=== PATIENT | male | born 1985 | race Caucasian/White ===

== ENCOUNTER 2017-03-24 10:03 | Emergency (ER) | payer MEDICAID ==
[2017-03-24 10:16] VITALS: BP 133/84
--- NOTE | 2017-03-24 10:24 | ED Physician Documentation ---
PD HPI HEENT - Stated complaint Stated Complaint: TOOTH PX - Chief complaint Chief Complaint: Heent - History obtained from History obtained from: Patient - History of Present Illness Timing - onset: How many weeks ago (2) Timing - duration: Weeks (2) Timing - details: Gradual onset, Still present Location: Tooth Improves: Medication Worsens: Everything Associated symptoms: Swollen nodes, Facial swelling, Headache. No: Fever Similar symptoms before: Diagnosis (bad tooth) Recently seen: Not recently seen - Additional information Additional information: 31-year-old male has developed a hole in 1 of his molars on the right lower jaw about 6 months ago. He has developed some extreme sensitivity over the past 2 weeks and this is been even worse over the last several days she has not been able to eat at all on that side and has lost weight. He did get food stuck in this hole and this seemed to protect him a little bit from heat and cold sensitivity. He is working on getting an appointment to see a dentist to have the tooth pulled. Review of Systems Constitutional: denies: Fever Eyes: denies: Decreased vision Ears: denies: Ear pain Nose: reports: Congestion Throat: reports: Dental pain / toothache Respiratory: denies: Cough GI: denies: Vomiting PD PAST MEDICAL HISTORY - Past Medical History Past Medical History: No Respiratory: Asthma - Past Surgical History Past Surgical History: No - Present Medications Home Medications: Ambulatory Orders Medication Instructions Recorded Confirmed Amoxicillin 875 mg PO BID #20 tablet 03/24/17 - Allergies Allergies/Adverse Reactions: Allergies Allergy/AdvReac Type Severity Reaction Status Date / Time No Known Drug Allergies Allergy Verified 04/03/16 11:57 - Social History Does the pt smoke?: Yes Smoking Status: Current every day smoker Does the pt drink ETOH?: No - Immunizations Immunizations are current?: Yes PD ED PE NORMAL - Vitals Vital signs reviewed: Yes - General General: No acute distress, Well developed/nourished - HEENT HEENT: Atraumatic, PERRL, EOMI, Ears normal, Other (There is a hole in number 31 And this is filled with food debris. This is rinsed out of the Cavity with saline and It is applied over the top of it.) - Neck Neck: Supple, no meningeal sign, No bony TTP - Respiratory Respiratory: No respiratory distress - Derm Derm: Normal color, Warm and dry, No rash - Extremities Extremities: No deformity, No edema - Neuro Neuro: No motor deficit, No sensory deficit - Psych Psych: Normal mood, Normal affect PD ED PE EXPANDED - HEENT HEENT Visual: 1 - abscess, swelling, tenderness Results - Vitals Vitals: Vital Signs - 24 hr 03/24/17 10:13 Temperature 36.8 C Heart Rate 84 Respiratory 16 Rate Blood Pressure 133/84 H O2 Saturation 100 Oxygen O2 Source Room air PD MEDICAL DECISION MAKING - ED course Complexity details: considered differential, d/w patient ED course: 31-year-old male with a hole in his tooth and a lot of pain appears to have some swelling around the tooth as well the whole is cleared of debris with irrigation with saline and It is placed over the open hole with some improvement of patient's pain. Departure - Departure Disposition: 01 Home, Self Care Clinical Impression: Dental abscess Condition: Stable Instructions: ED Abscess Dental Follow-Up: [facility] [Provider Group] Prescriptions: Amoxicillin 875 mg PO BID #20 tablet
== END 2017-03-24 10:30 | disposition home or self-care (01) ==
LOC: ED 10:03
DX: K04.7 Periapical abscess without sinus (principal); K08.89 Other specified disorders of teeth and supporting structures
CPT/HCPCS: 99283

== ENCOUNTER 2017-07-16 14:12 | Emergency (ER) | payer MEDICAID ==
[2017-07-16 14:24] VITALS: BP 131/83
--- NOTE | 2017-07-16 14:31 | ED Physician Documentation ---
PD HPI ABD PAIN - Stated complaint Stated Complaint: LEFT SIDE ABD PX - Chief complaint Chief Complaint: Abd Pain - History obtained from History obtained from: Patient - History of Present Illness Timing - onset: Other (He was lifting an appliance yesterday and felt pain in the left lower quadrant radiating towards the groin. It is worse if he coughs or bends. There is no associated trouble with his bowel movements or nausea. No history of abdominal surgeries.) Review of Systems Constitutional: denies: Fever, Chills Cardiac: denies: Chest pain / pressure, Palpitations Respiratory: denies: Dyspnea, Cough GI: denies: Nausea, Vomiting, Constipation, Diarrhea PD PAST MEDICAL HISTORY - Past Medical History Past Medical History: Yes Respiratory: Asthma - Past Surgical History Past Surgical History: No - Present Medications Home Medications: Ambulatory Orders Medication Instructions Recorded Confirmed Amoxicillin 875 mg PO BID #20 tablet 03/24/17 - Allergies Allergies/Adverse Reactions: Allergies Allergy/AdvReac Type Severity Reaction Status Date / Time No Known Drug Allergies Allergy Verified 04/03/16 11:57 - Social History Does the pt smoke?: Yes Smoking Status: Current every day smoker Does the pt drink ETOH?: No - Immunizations Immunizations are current?: Yes PD ED PE NORMAL - Vitals Vital signs reviewed: Yes - General General: Alert and oriented X 3, No acute distress - Respiratory Respiratory: No respiratory distress, Clear bilaterally - Abdomen Abdomen: Normal bowel sounds, Soft, Non tender - Male Male : Other (No hernia mass with coughing, nontender testes, no skin changes. ) - Neuro Neuro: Alert and oriented X 3, Normal speech - Psych Psych: Normal mood, Normal affect Results - Vitals Vitals: Vital Signs - 24 hr 07/16/17 14:21 Temperature 36.6 C Heart Rate 80 Respiratory 18 Rate Blood Pressure 131/83 H O2 Saturation 100 Oxygen O2 Source Room air Departure - Departure Disposition: Home, Self Care Clinical Impression: Abdominal wall strain Qualifiers: Encounter type: initial encounter Qualified Code(s): S39.011A - Strain of muscle, fascia and tendon of abdomen, initial encounter Condition: Good Record reviewed to determine appropriate education?: Yes Instructions: ED Strain Abdominal Muscle Comments: Return if worse, Back follow-up with your doctor in 1 week if not better. Your blood pressure was elevated today on check into the emergency department. This does not mean that you have hypertension, it is a common phenomenon to come to the emergency department and have elevated blood pressure. I recommend that you see your primary care physician within the week to have it rechecked when you are feeling better.
== END 2017-07-16 14:33 | disposition home or self-care (01) ==
LOC: ED 14:12
DX: S39.011A Strain of muscle, fascia and tendon of abdomen, initial encounter (principal); X50.0XXA Overexertion from strenuous movement or load, initial encounter; R03.0 Elevated blood-pressure reading, without diagnosis of hypertension; J45.909 Unspecified asthma, uncomplicated; F17.200 Nicotine dependence, unspecified, uncomplicated
CPT/HCPCS: 99282; 99283

== ENCOUNTER 2018-03-15 10:03 | Emergency (ER) | payer MEDICAID ==
[2018-03-15] MEDS ORDERED: oxyCODONE 5 MG TABLET PO STA (10:43)
[2018-03-15] MEDS ORDERED: cephALEXin 250 MG CAPSULE PO STA (10:44)
[2018-03-15] MEDS ORDERED: LIDOCAINE-EPINEPH-TETRACAINE 3 ML SYRINGE TOP STA (10:44)
[2018-03-15] MEDS ORDERED: SULFAMETH/TRIMETH DS 800/160 MG TABLET PO STA (10:44)
--- NOTE | 2018-03-15 10:46 | ED Physician Documentation ---
History of Present Illness - Stated complaint Stated Complaint: BUMPS ALL OVER BODY - Chief complaint Chief Complaint: General - Additonal information Additional information: hx from pt 32 male to ED with as=bscess X 3 R arm, R buttock, large on low abd/suprapubic region very painful feels genrally ill no fever no hx same Review of Systems Constitutional: reports: Myalgias, Fatigue. denies: Fever Skin: reports: Other (abscess) Immunocompromised: denies: Immunocompromised PD PAST MEDICAL HISTORY - Past Medical History Respiratory: Asthma - Past Surgical History Past Surgical History: No - Present Medications Home Medications: Ambulatory Orders Medication Instructions Recorded Confirmed Cephalexin [Keflex] 500 mg PO Q6H #28 capsule 03/15/18 Sulfamethox/Trimeth 800/160 1 each PO BID #14 tablet 03/15/18 [Bactrim Ds 800/160] - Allergies Allergies/Adverse Reactions: Allergies Allergy/AdvReac Type Severity Reaction Status Date / Time No Known Drug Allergies Allergy Verified 03/15/18 10:09 - Social History Does the pt smoke?: Yes Smoking Status: Current every day smoker Does the pt drink ETOH?: No Substance Use and Type: Marijuana - Immunizations Immunizations are current?: Yes PD ED PE NORMAL - Vitals Vital signs reviewed: Yes - Cardiac Cardiac: RRR - Respiratory Respiratory: No respiratory distress. No: Clear bilaterally (occ wheeze - smoker - advised to stop) - Derm Derm: Other (small absess to R arm and R buttock, large gold ball sized abscess to suprapubic) Results - Vitals Vitals: Vital Signs - 24 hr 03/15/18 10:04 Temperature 36.6 C Heart Rate 88 Respiratory 18 Rate Blood Pressure 141/86 H O2 Saturation 99 Oxygen O2 Source Room air PD MEDICAL DECISION MAKING - Sepsis Event Vital Signs: Vital Signs - 24 hr 03/15/18 10:04 Temperature 36.6 C Heart Rate 88 Respiratory 18 Rate Blood Pressure 141/86 H O2 Saturation 99 Oxygen O2 Source Room air Departure - Departure Disposition: 01 Home, Self Care Clinical Impression: Abscess Condition: Good Instructions: ED Abscess IandD Prescriptions: Cephalexin [Keflex] 500 mg PO Q6H #28 capsule Sulfamethox/Trimeth 800/160 [Bactrim Ds 800/160] 1 each PO BID #14 tablet Comments: Take both antibiotics as prescribed Motrin and tylenol as needed for the pain. In two days may pull the packing out - if it falls out sooner that is fine too Return if worse
[2018-03-15] MEDS ORDERED: LIDOCAINE 2%-EPI 1:100000 20 ML MDV SUBQ STA (11:26)
[2018-03-15 13:10] VITALS: BP 129/95
== END 2018-03-15 13:17 | disposition home or self-care (01) ==
LOC: ED 10:03
DX: L02.413 Cutaneous abscess of right upper limb (principal); L02.31 Cutaneous abscess of buttock; F17.200 Nicotine dependence, unspecified, uncomplicated
CPT/HCPCS: 87070; 87181; 87205; 99283; A9270

== ENCOUNTER 2018-03-20 13:54 | Emergency (ER) | payer MEDICAID ==
[2018-03-20] MEDS ORDERED: BACITRACIN OINT TOP STA (14:54)
--- NOTE | 2018-03-20 14:57 | ED Physician Documentation ---
PD HPI WOUND RECHECK - Stated complaint Stated Complaint: POST SURGICAL COMPLICATIONS - Chief complaint Chief Complaint: Wound - Histroy obtained from History obtained from: Patient - History of Present Illness Location: Other (R forearm, suprapubic and buttock) Timing - onset: How many weeks ago (1) Pain level max: 4 Pain level now: 3 Associated symptoms: Redness, Swelling, Drainage. No: Fever Recently seen: Emergency Dept (s/p I &D 5 days ago. Still draining.) Review of Systems Constitutional: denies: Fever GI: denies: Vomiting Skin: denies: Rash Neurologic: denies: Headache PD PAST MEDICAL HISTORY - Past Medical History Past Medical History: Yes Respiratory: Asthma - Past Surgical History Past Surgical History: No - Present Medications Home Medications: Ambulatory Orders Medication Instructions Recorded Confirmed Cephalexin [Keflex] 500 mg PO Q6H #28 capsule 03/15/18 Sulfamethox/Trimeth 800/160 1 each PO BID #14 tablet 03/15/18 [Bactrim Ds 800/160] Bacitracin Zinc Oint 1 applic TOP BID #1 tube 03/20/18 Sulfamethox/Trimeth 800/160 1 each PO BID #14 tablet 03/20/18 [Bactrim Ds 800/160] - Allergies Allergies/Adverse Reactions: Allergies Allergy/AdvReac Type Severity Reaction Status Date / Time No Known Drug Allergies Allergy Verified 03/15/18 10:09 - Social History Does the pt smoke?: Yes Smoking Status: Current every day smoker Does the pt drink ETOH?: No Does the pt have substance abuse?: Yes Substance Use and Type: Marijuana - Immunizations Immunizations are current?: Yes Immunizations: TDAP current <10years PD ED PE NORMAL - Vitals Vital signs reviewed: Yes - General General: Alert and oriented X 3, No acute distress - HEENT HEENT: Moist mucous membranes - Neck Neck: Supple, no meningeal sign - Derm Derm: Warm and dry - Extremities Extremities: Other (r forearm 1cm indurated draining area, suprapubic 1cm indurated, draining area. R buttock minimal area of erythema. ) - Neuro Neuro: Alert and oriented X 3 - Psych Psych: Normal mood, Normal affect Results - Vitals Vitals: Vital Signs - 24 hr 03/20/18 14:08 Temperature 37.0 C Heart Rate 83 Respiratory 18 Rate Blood Pressure 136/87 H O2 Saturation 98 Oxygen O2 Source Room air PD MEDICAL DECISION MAKING - ED course Complexity details: reviewed old records, considered differential, d/w patient ED course: Patient is a 32-year-old male who presents to the emergency department with abscesses that were drained several days ago. These are continuing to drain purulent material, there are clinically improved from prior. He also states they are significantly improved. We will continue the antibiotics at home and have him follow-up with his doctor for further evaluation. No fevers. No need for recurrent drainage. Patient counseled regarding signs and symptoms for which I believe and urgent re-evaluation would be necessary. Patient with good understanding of and agreement to plan and is comfortable going home at this time This document was made in part using voice recognition software. While efforts are made to proofread this document, sound alike and grammatical errors may occur. - Sepsis Event Vital Signs: Vital Signs - 24 hr 03/20/18 14:08 Temperature 37.0 C Heart Rate 83 Respiratory 18 Rate Blood Pressure 136/87 H O2 Saturation 98 Oxygen O2 Source Room air Departure - Departure Disposition: 01 Home, Self Care Clinical Impression: Abscess Condition: Good Instructions: ED Abscess IandD Follow-Up: your,doctor in 1 week for recheck [Other] Prescriptions: Bacitracin Zinc Oint 1 applic TOP BID #1 tube Sulfamethox/Trimeth 800/160 [Bactrim Ds 800/160] 1 each PO BID #14 tablet Comments: Take all antibiotics until gone. Return if you worsen. You can apply warm, moist compresses 2-3 times daily to help these drain. Discharge Date/Time: 03/20/18 15:12
[2018-03-20 15:13] VITALS: BP 119/95
== END 2018-03-20 15:12 | disposition home or self-care (01) ==
LOC: ED 13:54
DX: L02.414 Cutaneous abscess of left upper limb (principal); L02.818 Cutaneous abscess of other sites; F17.200 Nicotine dependence, unspecified, uncomplicated
CPT/HCPCS: 99283

== ENCOUNTER 2018-05-10 15:21 | Emergency (ER) | payer MEDICAID ==
[2018-05-10 15:43] VITALS: BP 141/79
[2018-05-10] MEDS ORDERED: AMOXICILLIN 250 MG CAPSULE PO STA (16:18)
[2018-05-10] MEDS ORDERED: DEXAMETHASONE 10 MG/ML VIAL PO STA (16:18)
--- NOTE | 2018-05-10 16:21 | ED Physician Documentation ---
History of Present Illness - Stated complaint Stated Complaint: TOOTH PX - Chief complaint Chief Complaint: Heent - Additonal information Additional information: hx from pt 32 male to ER with dental pain and jaw swelling tried numerous dentists today but not open no fever otherwise healthy Review of Systems Constitutional: denies: Fever Throat: reports: Dental pain / toothache Immunocompromised: denies: Immunocompromised PD PAST MEDICAL HISTORY - Past Medical History Respiratory: Asthma - Past Surgical History Past Surgical History: No - Present Medications Home Medications: Ambulatory Orders Medication Instructions Recorded Confirmed Cephalexin [Keflex] 500 mg PO Q6H #28 capsule 03/15/18 Sulfamethox/Trimeth 800/160 1 each PO BID #14 tablet 03/15/18 [Bactrim Ds 800/160] Bacitracin Zinc Oint 1 applic TOP BID #1 tube 03/20/18 Sulfamethox/Trimeth 800/160 1 each PO BID #14 tablet 03/20/18 [Bactrim Ds 800/160] Amoxicillin 500 mg PO Q8HR #30 capsule 05/10/18 Hydrocodone/Acetaminophen 1 each PO Q6H PRN #6 tablet 05/10/18 [Hydrocodon-Acetaminophen 5-325] Ibuprofen [Motrin] 400 mg PO Q6H PRN #30 tablet 05/10/18 - Allergies Allergies/Adverse Reactions: Allergies Allergy/AdvReac Type Severity Reaction Status Date / Time No Known Drug Allergies Allergy Verified 05/10/18 15:43 - Social History Does the pt smoke?: Yes Smoking Status: Current every day smoker Does the pt drink ETOH?: No Does the pt have substance abuse?: Yes - Immunizations Immunizations are current?: Yes Immunizations: TDAP current <10years PD ED PE NORMAL - Vitals Vital signs reviewed: Yes - HEENT HEENT: Other (severe dental decay, swelling to L jawline, no trismus ir sublingual swelling/ luwigs, no visible abscess intraoral to drain) - Cardiac Cardiac: RRR - Respiratory Respiratory: No respiratory distress - Neuro Neuro: Alert and oriented X 3 Results - Vitals Vitals: Vital Signs - 24 hr 05/10/18 15:41 Temperature 36.4 C L Heart Rate 84 Respiratory 18 Rate Blood Pressure 141/79 H O2 Saturation 99 Oxygen O2 Source Room air Departure - Departure Disposition: Home, Self Care Clinical Impression: Dental abscess Condition: Good Instructions: ED Abscess Dental Follow-Up: Iva Bolden ARNP [Provider Admit Priv/Credential] - (to establish primary care) Titi Mireles DDS [Provider Admit Priv/Credential] - (for dental extraction ) Prescriptions: Amoxicillin 500 mg PO Q8HR #30 capsule Hydrocodone/Acetaminophen [Hydrocodon-Acetaminophen 5-325] 1 each PO Q6H PRN #6 tablet PRN Reason: Severe Pain Ibuprofen [Motrin] 400 mg PO Q6H PRN #30 tablet PRN Reason: Pain
== END 2018-05-10 16:41 | disposition home or self-care (01) ==
LOC: ED 15:21
DX: K04.7 Periapical abscess without sinus (principal)
CPT/HCPCS: 99283; A9270